=== PATIENT | male | born 1980 | race Caucasian/White ===

== ENCOUNTER 2016-10-26 09:59 | Observation (INO) | payer OTHER ==
--- NOTE | 2016-09-06 09:27 | DIAGNOSTIC IMAGING REPORT ---
CHEST 2 VIEWS ROUTINE CLINICAL HISTORY: PT WENT TO LAB SEND TO [facility] NEXT - PREOP COMPARISON STUDY: No previous studies for comparison. FINDINGS: The bones soft tissues and hemidiaphragms are normal. The cardiomediastinal silhouette is normal. The lungs are clear. The pulmonary vasculature is normal. IMPRESSION: Negative chest. Electronically signed by: Eddie Lopez M.D. 09/06/2016 9:26 AM
[2016-09-06 09:43] LABS: BASO % 0.4 %; BASO ABS # 0.02 K/uL (0-0.2); COMPLETE YES; EOS % 3.7 %; HEMATOCRIT 42.5 % (42-52); IG% 0.4 %; LYMPH % 22.9 %; LYMPH ABS # 1.23 K/uL (1.2-3.4); MEAN CORPUSCULAR HEMOGLOBIN 29.6 pg (25-34); MEAN CORPUSCULAR HGB CONC 35.3 g/dl (32-36); MEAN PLATELET VOLUME 9.8 fL (7.4-10.4); MONO % 10.2 %; NEUT % 62.4 %; PLATELET COUNT 170 K/uL (130-400); RED BLOOD COUNT 5.06 M/uL (4.7-6.1); WHITE BLOOD COUNT 5.37 K/uL (4.8-10.8)
[2016-09-06 10:18] LABS: BLOOD UREA NITROGEN 20 mg/dl (7-18); CARBON DIOXIDE 28 mmol/L (21-32); CHLORIDE 105 mmol/L (98-107); GLUCOSE 98 mg/dl (70-99); SODIUM 142 mmol/L (136-145)
[2016-09-08 11:59] LABS: URINE APPEARANCE CLEAR (CLEAR); URINE BILIRUBIN NEG (NEG); URINE COLOR YELLOW; URINE NITRITE NEG (NEG); URINE SPECIFIC GRAVITY 1.022 (1.000-1.030); UROBILINOGEN NEG (NEG)
[2016-09-08 12:04] LABS: MANUAL MICROSCOPIC REQUIRED? NO; REVIEW REQ? NO
[2016-10-25 16:01] VITALS: BMI 39.0
[2016-10-26] VITALS (13 sets, daily range): BP systolic 134–163; BP diastolic 79–99; PULSE 76–84; TEMP 36.5–36.9; O2SAT 93–96; Ht 182.9 cm; Wt 129.6 kg
[~2016-10-26] VITALS: Ht 182.9 cm; Wt 129.6 kg
[~2016-10-26 09:59] MED LIST: ADVIN25/60 INH; ALBU1AER9 INH; ALBU1NEB10 INH; CALC500C3 PO; DIPH25CA65 PO; IBUP-1050 PO; IPRASOL4 INH; LACTATED RINGER'S 1000ML 1,000 ML IV SCH; MOME100A INH
--- NOTE | 2016-10-26 12:15 | History and Physical ---
History & Physical Date Oct 26, 2016. Chief Complaint neck pain and R arm pain History of Present Illness The patient is a 36 year old male with complaints of above due to massive C6-7 HNP after work injury. MRI shows cord compression. He describes numbness and weakness of R UE. no incontinence. Past Medical/Surgical History Medical Problems: (1) Asthma, Unspecified (2) Carotid gland cancer (3) Cholecystectomy (4) Cholelith W Cholecys Nec (5) Esophageal Reflux (6) Hypertension Nos (7) Malignant neoplasm of parotid gland (8) Obesity, Nos (9) Parotid neoplasm (10) S/P radiation therapy (11) Sarcoidosis 12 Factor V Leiden-no hx of DVT or stroke Surgical Problems: (1) H/O wisdom tooth extraction (2) History of parotid gland removal Additional History Hepatic Disease: No Endocrine Disorder: No Kidney Disease: No Hypertension: No Heart Disease: No Bleeding Tendencies: No Infectious Diseases: No Allergies Coded Allergies: Cat Dander (Verified Allergy, Unknown, EYES SWELLING,STUFFINESS, 10/25/16) Dust (Verified Allergy, Unknown, STUFFINESS, ASTHMA TRIGGER?, 10/25/16) NO KNOWN DRUG ALLERGIES (Unverified Allergy, Unknown, NONE, 10/25/16) Home Medications Scheduled Calcium Carbonate (Tums), 2 TAB PO PRN Fluticasone Prop/Salmeterol (Advair Diskus 250/50 60 Dose), 1 PUFF INH BID Scheduled PRN Albuterol (Proair Hfa), 2 PUFFS INH Q4 PRN for SOB/Wheezing Albuterol Sulf (Albuterol Sulfate 0.083% For Inh), 3 ML INH QID PRN for PRN Diphenhydramine Hcl (Benadryl Allergy), 2 CAP PO Q4 PRN for ALLERGIC REACTION Ibuprofen (Advil), 400 MG PO BID PRN for PRN Ipratropium-Albuterol (Duoneb), 1 TREATMENT INH Q4H PRN for PRN Physical Examination Skin: warm/dry Eyes: normal inspection, sclerae normal ENT: normal ENT inspection Head: normocephalic, atraumatic Neck: supple Respiratory/Chest: lungs clear, no respiratory distress Cardiovascular: regular rate, rhythm Back: normal inspection Extremities: normal inspection, normal range of motion Neurologic/Psych: no motor/sensory deficits, alert, normal reflexes, oriented x 3 Addiitonal Comments: R fingers numbness Diagnosis HNP C6-7 Plan of Treatment disc replacement C6-7 versus possible C6-7 ACDF
[2016-10-26] MEDS ORDERED: OXYC-57 PO (12:17)
[2016-10-26] MEDS ORDERED: LACTATED RINGER'S 1000ML 1,000 ML IV PRN (12:18)
[2016-10-26] MEDS ORDERED: ONDANSETRON INJ 2 MG/ML 2 ML VIAL IV PRN ×2 (12:30→14:15)
[2016-10-26] MEDS ORDERED: REMIFENTANIL 1 MG VIAL IV ONE (12:32)
[2016-10-26] MEDS ORDERED: PROPOFOL IV EMULSION 10 MG/ML 100 ML VIAL IV ONE (12:32)
[2016-10-26] MEDS ORDERED: MIDAZOLAM HCL 1 MG/ML 2ML VIAL ONE (12:42)
[2016-10-26] MEDS ORDERED: FENTANYL CITRATE INJ 50 MCG/1 ML 2 ML VIAL ONE (12:42)
[2016-10-26] MEDS ORDERED: CEFAZOLIN IV 3,000 MG/65 ML D5W IV ONE (12:44)
[2016-10-26] MEDS ORDERED: ONDANSETRON INJ 2 MG/ML 2 ML VIAL ONE (13:30)
[2016-10-26] MEDS ORDERED: SUCCINYLCHOLINE CHLORIDE 20 MG/ML 10 ML VIAL IV ONE (13:30)
[2016-10-26] MEDS ORDERED: DEXAMETHASONE SOD INJ 4 MG/ML VIAL ONE (13:30)
[2016-10-26] MEDS ORDERED: EpHEDrine SULFATE 50MG/5ML SYR ONE (13:30)
[2016-10-26] MEDS ORDERED: LARYING-O-JET KIT (LTA) EXT ONE ×2 (13:30)
[2016-10-26] MEDS ORDERED: ROCURONIUM BROMIDE 10 MG/ML 5 ML VIAL ONE (13:30)
[2016-10-26] MEDS ORDERED: PROPOFOL IV EMULSION 10 MG/ML 20 ML VIAL IV ONE (13:30)
[2016-10-26] MEDS ORDERED: LIDOCAINE HCL 2% 2 ML VIAL (20MG/ML) ONE (13:30)
[2016-10-26] MEDS ORDERED: BACITRACIN 50000 UNIT VIAL IR ONE (14:04)
[2016-10-26] MEDS ORDERED: THROMBIN 5000 UNITS KIT TOP ONE (14:04)
[2016-10-26] MEDS ORDERED: FLOSEAL HEMOSTATIC MATRIX 5ML TOP ONE (14:04)
--- NOTE | 2016-10-26 14:07 | [facility] Post Operative Brief Note ---
Immediate Operative Summary Operative Date Oct 26, 2016. Pre-Operative Diagnosis Herniated nucleus pulposus C6-C7 Post-Operative Diagnosis Same as preoperative diagnosis Procedure(s) Performed C6-C7 Disc Replacement Surgeon Dr. Mikey Bernstein House Calls Nurse Practitioner Surgeon(s) Gerard Hong PA-C Estimated Blood Loss 20mL Findings dict Specimens No pathology specimens per surgeon
[2016-10-26] MEDS ORDERED: DEXAMETHASONE INJ 8 MG in SYRINGE 0 ML IV PRN (14:15)
[2016-10-26] MEDS ORDERED: ACETAMINOPHEN IV 1,000 MG in EMPTY BAG 0 ML IV PRN (14:15)
[2016-10-26] MEDS ORDERED: NALOXONE HCL 0.4 MG/1 ML VIAL/CARP IV PRN (14:15)
[2016-10-26] MEDS ORDERED: CALCIUM CARBONATE 500 MG CHEWABLE PO PRN (14:15)
[2016-10-26] MEDS ORDERED: DiphenhydrAMINE HCL 50 MG/ML VIAL IV PRN (14:15)
[2016-10-26] MEDS ORDERED: LORAZEPAM INJ 0.5 MG in SYRINGE 0.75 ML IV PRN (14:15)
[2016-10-26] MEDS ORDERED: LORAZEPAM 0.5 MG TAB PO PRN (14:15)
[2016-10-26] MEDS ORDERED: RACEPINEPHRINE 2.25% NEBU SOLN 0.5 ML VIAL INH PRN (14:15)
--- NOTE | 2016-10-26 14:20 | Discharge Instructions ---
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 Please continue this for a total of 7 days. ACTIVITY RECOMMENDATIONS: SELF CARE INSTRUCTIONS AFTER CERVICAL FUSIONS 1. No smoking. Smoking drastically decreases the chance of a solid fusion. 2. No bending, lifting more than 5 pounds, or twisting (roll like a log when turning in bed). 3. You may shower 3 days after surgery. Thoroughly dry wound. Do not soak in the tub. 4. Cervical collar: Must be worn at all times including sleeping. You may remove the brace only to bath, eat and if you are sitting in a recliner. 5. Please walk as much as you can for exercise. Gradually increase the distance that you walk as your endurance increases. SPECIAL CARE INSTRUCTIONS: VERY IMPORTANT TO READ AND REVIEW A. Do not take any anti-inflammatory medications (i.e. Indocin, Advil, Aspirin, Naprosyn, Aleve, Motrin, etc.) as these may inhibit the chance of a solid fusion. Tylenol is okay to take. B. Your surgical incision has been closed with a cosmetic suture under the skin that will dissolve in about 6 weeks. In 14 days, you can use a pair of clean scissors and cut the suture that is left outside of the skin at the ends of your incision. C. Complications are uncommon, but please contact us if you have any signs or symptoms of: 1. wound infection (fever higher than 102.5 degrees F, redness, separation of wound, drainage, or increasing pain from the incision) 2. blood clots in legs (pain, swelling, redness and warmth in legs) 3. urinary tract infection (fever higher than 102.5 degrees, burning upon urination or increased frequency of urination) 4. nerve problems (inability to walk on your toes or heels, numbness, loss of bowel or bladder control) 5. any other symptoms that concern you. D. Please call the office at if you have any concerns or questions about your operation or recovery. MANAGING PAIN AFTER SPINAL SURGERY 1. Narcotic medication is intended for short-term use and will be provided for surgical pain. Surgical pain usually lasts for a period of 4-6 weeks. Narcotic medication includes Percocet, Vicodin, Darvocet, Tylenol #3 or Lortab. 2. Longer-term pain is more appropriately treated with non-narcotic medication such as Tylenol ES. 3. Muscle spasm is not appropriately treated with narcotics. Muscle relaxers such as Soma, Flexeril or Skelaxin can be used along with Tylenol ES. 4. Remember that we all live with some "aches and pains". This is not unusual or uncommon after an injury or as we get older. 5. We will provide appropriate medication within the normal guidelines of their prescribed use. We will also be very cautious and aware of potential abuse and extended duration of patients' medication needs. 6. Please allow 2-3 days to process refills. Prescriptions will not be mailed but must be picked up at the office. FOLLOW UP VISIT: Keep your scheduled follow-up appointment. Any questions, please call the office at . . Current Hospital Diet Patient's current hospital diet: Clear Liquid Diet Discharge Diet Recommended Diet: Regular Diet Procedures Procedures Performed: C6-C7 Disc Replacement Pending Studies Studies pending at discharge: no Medical Emergencies . Who to Call and When: Medical Emergencies: If at any time you feel your situation is an emergency, please call 911 immediately. . Non-Emergent Contact Non-Emergency issues call your: Surgeon Call Non-Emergent contact if: temperature is above 101, your pain is not controlled, your pain is worsening, your pain is unusual for you, your pain is concerning you, wound has increased drainage, wound has increased redness, wound has increased pain, you have any medication questions . "Provider Documentation" section prepared by Gerard Hong. VTE Core Measure Inpt VTE Proph given/why not?: Gunner Lucero
[2016-10-26] MEDS ORDERED: IV FLUIDS COMPLETED PRN (14:30)
[2016-10-26] MEDS: FENTANYL CITRATE INJ 50 MCG/1 ML 2 ML VIAL IV PRN ×2 (14:32→14:38)
--- NOTE | 2016-10-26 14:32 | DIAGNOSTIC IMAGING REPORT ---
INTRAOPERATIVE RADIOGRAPHS CLINICAL HISTORY: C6-C7 spinal fusion. Fluoroscopy time: 19 seconds. FINDINGS: 3 spot fluoroscopic views of the cervical spine are presented. There is evidence of discectomy at C6-C7 with a disc spacer in place. An endotracheal tube is noted. IMPRESSION: Intraoperative images from C6 to C7 spinal fusion. See operative report for detailed findings. Electronically signed by: Ankit Olivo M.D. 10/26/2016 2:30 PM Dictated Date/Time: 10/26/2016 2:27 PM
[2016-10-26] MEDS: MoRPHine SULFATE 10 MG/ML CARP/VIAL IV PRN ×5 (14:47→15:24)
[2016-10-26] MEDS ORDERED: NURSING VERBAL MED ORDER ONE (15:00)
[2016-10-26] MEDS ORDERED: LABETALOL HCL IV 5 MG/ML 20ML IV PRN (15:15)
--- NOTE | 2016-10-26 15:21 | OPERATIVE REPORT ---
DATE OF OPERATION: 10/26/2016 PREOPERATIVE DIAGNOSES: 1. Cervical disc herniation C6-C7. 2. Cervical myelopathy. POSTOPERATIVE DIAGNOSIS: Same. PROCEDURES: Cervical disc replacement with LDR Mobi-C C6-C7. SURGEON: Dr. Bernstein. [employer] BUSINESS INTELLIGENCE DEVELOPER: Gerard Hong PA-C. Please note he participated in all portions of the procedure and was critical for performance of the procedure, participated with positioning, prepping, draping, retraction, and wound closure. ANESTHESIA: General endotracheal anesthesia. COMPLICATIONS: None. ESTIMATED BLOOD LOSS: Minimal. OPERATION AND FINDINGS: PROCEDURE: After identification of patient and operative level he underwent induction of general anesthesia. He was then positioned supine on the [facility] OR table with all bony prominences well padded. Care was taken to avoid pressure on the bony prominences. He had arms tucked to the sides and well padded. Shoulders were taped distally and the anterior neck was sterilely prepped and draped in usual fashion. Antibiotics were administered. Time-out was performed, level was confirmed and spinal cord monitoring signals were obtained and transverse skin incision was made on the right side of the neck at the level of the cricoid cartilage. I divided the platysma in line with the incision and performed routine anterior cervical exposure. Please note I did all of this from the left side in his case. We did not approach from the right. The initial skin incision was made on the left and exposure was done from the left with blunt dissection. I then dissected past the carotid sheath and identified the presumptive disc spaces. After exposure of the disc spaces I identified level with fluoroscopy and marked the C6-C7 disc space with electrocautery and then placed self-retaining cervical retractor deep to the longus colli. I then placed Clinton pins in the body of C6 and C7 and applied distraction across the pins and then did a complete discectomy at C6-C7. I removed the posterior annulus, the PLL and there was extruded disc material behind the annulus contained by the PLL. There was no disc material behind the PLL. I then palpated the neural foramina were clear and determined disc replacement size with trial sizers. I then inserted the 6 mm high Mobi-C into position, released Clinton distraction, applied bone wax over the holes. I obtained x-rays confirming good position of the disc replacement and then irrigated with bacitracin solution, applied FloSeal for hemostasis, confirmed hemostasis and closed over a small round drain. All sponge and needle counts were correct at the end of the case. I attest to the content of the Intraoperative Record and any orders documented therein. Any exceptio ns are noted below.
--- NOTE | 2016-10-26 15:35 | Anesthesiology Progress Note ---
Anesthesia Post Op Note Date & Time Oct 26, 2016 at 15:34 Vital Signs Pain Intensity: 5 Vital Signs Past 12 Hours Date Time Temp Pulse Resp B/P Pulse Ox O2 Delivery O2 Flow Rate FiO2 10/26/16 15:26 82 16 126/95 95 Nasal Cannula 2 Mask 10/26/16 15:16 76 16 126/95 96 Nasal Cannula 2 Mask 10/26/16 15:06 73 16 126/93 96 Nasal Cannula 2 Mask 10/26/16 14:56 84 16 134/90 99 Nasal Cannula 2 Mask 10/26/16 14:46 83 16 134/102 99 Mask 10 10/26/16 14:36 77 14 156/107 99 Mask 10 10/26/16 14:26 36.4 81 16 165/94 98 Mask 10 10/26/16 10:28 36.5 81 20 134/94 95 Room Air 10/26/16 10:26 36.5 81 20 134/94 Notes Mental Status: alert / awake / arousable, participated in evaluation Pt Amnestic to Procedure: Yes Nausea / Vomiting: adequately controlled Pain: adequately controlled Airway Patency, RR, SpO2: stable & adequate BP & HR: stable & adequate Hydration State: stable & adequate Anesthetic Complications: no major complications apparent Pt doing well.
[2016-10-26] MEDS: SODIUM CHLORIDE 0.9% 1000ML 1,000 ML IV SCH (16:40)
[2016-10-26] MEDS ORDERED: SCOPOLAMINE 1.5 MG TDSY TD SCH (17:00)
[2016-10-26] MEDS: ALBUTEROL HFA 8 GM INHALER INH PRN (19:17)
[2016-10-26] MEDS: OXYCODONE HCL IR 5 MG TAB (IMMEDIATE RELEASE) PO PRN (19:18)
[2016-10-26] MEDS: FLUTICASONE/SALMETEROL 250/50 (ADVAIR) 14 PUFF/1 INHALER INH SCH (20:41)
[2016-10-26] MEDS: CEFAZOLIN IV 1,000 MG in DEXTROSE 5% 50ML 50 ML IV SCH (20:41)
[2016-10-26] MEDS: HYDROmorphone INJ 1 MG/ML SYR IV PRN ×2 (20:42→23:34)
[2016-10-26] MEDS: DEXAMETHASONE INJ 6 MG in SYRINGE 0 ML IV SCH (21:48)
[2016-10-26] MEDS: CHECK SCOPOLAMINE PATCH PLACEMENT SCH (23:34)
[2016-10-27] VITALS (11 sets, daily range): BP systolic 118–148; BP diastolic 68–81; PULSE 68–86; TEMP 36.6–36.9; O2SAT 93–98
[2016-10-27] MEDS: DEXAMETHASONE INJ 6 MG in SYRINGE 0 ML IV SCH (05:32)
[2016-10-27] MEDS: SODIUM CHLORIDE 0.9% 1000ML 1,000 ML IV SCH (05:32)
[2016-10-27] MEDS: OXYCODONE HCL IR 5 MG TAB (IMMEDIATE RELEASE) PO PRN (05:33)
[2016-10-27] MEDS: CEFAZOLIN IV 1,000 MG in DEXTROSE 5% 50ML 50 ML IV SCH (05:33)
[2016-10-27] MEDS: CHECK SCOPOLAMINE PATCH PLACEMENT SCH (07:59)
[2016-10-27] MEDS: FLUTICASONE/SALMETEROL 250/50 (ADVAIR) 14 PUFF/1 INHALER INH SCH (07:59)
[2016-10-27] MEDS: ALBUTEROL HFA 8 GM INHALER INH PRN (08:00)
--- NOTE | 2016-10-27 10:02 | Orthopedic Progress Note ---
Orthopedic Progress Note Date of Service Oct 27, 2016. Subjective Post OP Day: 1 Reports: feeling well, pain controlled w PO medications, Denies: SOB, calf pain , chest pain, complaints, light headedness, nausea / vomiting Additional Notes: Doing well w/ no issues Objective calves soft nontender, N/V intact, capillary refill less than 2 sec., dressing C /D/I, incision C/D/I, A&O x3, hemovac drainage Date Time Temp Pulse Resp B/P Pulse Ox O2 Delivery O2 Flow Rate FiO2 10/27/16 08:16 36.6 68 16 94 Room Air 10/27/16 08:16 84 16 98 Room Air 10/27/16 08:00 Room Air 10/27/16 08:00 94 Room Air 10/27/16 07:57 36.6 68 16 125/72 94 Room Air 10/27/16 05:54 36.6 71 16 118/68 93 Room Air 10/27/16 04:10 81 16 96 Nasal Cannula 3.0 10/27/16 04:00 36.7 77 16 138/77 95 Nasal Cannula 3.0 Humidified Oxygen 10/27/16 02:05 36.9 78 16 125/72 97 Nasal Cannula 3.0 Humidified Oxygen 10/27/16 00:35 80 16 96 Nasal Cannula 2.0 10/27/16 00:00 36.8 81 16 148/81 96 Nasal Cannula 3.0 Humidified Oxygen 10/26/16 23:35 Nasal Cannula 3.0 Humidified Oxygen 10/26/16 23:00 16 10/26/16 22:00 36.8 81 18 144/79 95 Nasal Cannula 3.0 Humidified Oxygen 10/26/16 20:20 84 18 95 Nasal Cannula 2.0 10/26/16 20:00 36.9 78 18 152/89 96 Nasal Cannula 2.0 Humidified Oxygen 10/26/16 19:05 36.7 76 18 146/82 95 Nasal Cannula 2.0 Humidified Oxygen 10/26/16 19:05 36.7 76 18 146/82 95 Nasal Cannula 2.0 Humidified Oxygen 10/26/16 18:05 36.8 83 18 142/91 93 Nasal Cannula 2.0 Humidified Oxygen 10/26/16 18:05 36.8 83 18 142/91 93 Nasal Cannula 2.0 Humidified Oxygen 10/26/16 17:07 36.8 80 18 147/93 95 Nasal Cannula 2.0 Humidified Oxygen 10/26/16 17:05 36.8 76 18 147/93 95 Nasal Cannula 2.0 Humidified Oxygen 10/26/16 16:36 36.6 79 18 154/99 94 Nasal Cannula 2.0 Humidified Oxygen 10/26/16 16:35 36.6 76 18 154/99 94 Nasal Cannula 2.0 Humidified Oxygen 10/26/16 16:05 96 Nasal Cannula 2.0 10/26/16 16:05 36.8 76 16 163/93 96 Nasal Cannula 2.0 Humidified Oxygen 10/26/16 16:05 Nasal Cannula 2.0 Humidified Oxygen 10/26/16 15:56 81 14 95 Nasal Cannula 2.0 10/26/16 15:36 36.2 84 16 128/95 95 Nasal Cannula 4 10/26/16 15:26 82 16 126/95 95 Nasal Cannula 2 Mask 10/26/16 15:16 76 16 126/95 96 Nasal Cannula 2 Mask 10/26/16 15:06 73 16 126/93 96 Nasal Cannula 2 Mask 10/26/16 14:56 84 16 134/90 99 Nasal Cannula 2 Mask 10/26/16 14:46 83 16 134/102 99 Mask 10 10/26/16 14:36 77 14 156/107 99 Mask 10 10/26/16 14:26 36.4 81 16 165/94 98 Mask 10 10/26/16 10:28 36.5 81 20 134/94 95 Room Air 10/26/16 10:26 36.5 81 20 134/94 Assessment & Plan Assessment: s/p cervical fusion Plan: Discharge home today
--- NOTE | 2016-10-27 10:21 | Anesthesiology Progress Note ---
Anesthesia Post Op Note Date & Time Oct 27, 2016 at 10:20 Vital Signs Pain Intensity: 1.0 Vital Signs Past 12 Hours Date Time Temp Pulse Resp B/P Pulse Ox O2 Delivery O2 Flow Rate FiO2 10/27/16 08:16 36.6 68 16 94 Room Air 10/27/16 08:16 84 16 98 Room Air 10/27/16 08:00 Room Air 10/27/16 08:00 94 Room Air 10/27/16 07:57 36.6 68 16 125/72 94 Room Air 10/27/16 05:54 36.6 71 16 118/68 93 Room Air 10/27/16 04:10 81 16 96 Nasal Cannula 3.0 10/27/16 04:00 36.7 77 16 138/77 95 Nasal Cannula 3.0 Humidified Oxygen 10/27/16 02:05 36.9 78 16 125/72 97 Nasal Cannula 3.0 Humidified Oxygen 10/27/16 00:35 80 16 96 Nasal Cannula 2.0 10/27/16 00:00 36.8 81 16 148/81 96 Nasal Cannula 3.0 Humidified Oxygen 10/26/16 23:35 Nasal Cannula 3.0 Humidified Oxygen 10/26/16 23:00 16 Notes Mental Status: alert / awake / arousable, participated in evaluation Pt Amnestic to Procedure: Yes Nausea / Vomiting: adequately controlled Pain: adequately controlled Airway Patency, RR, SpO2: stable & adequate BP & HR: stable & adequate Hydration State: stable & adequate Anesthetic Complications: no major complications apparent
--- NOTE | 2016-11-04 12:06 | DISCHARGE SUMMARY ---
PRINCIPAL DIAGNOSIS: 1. Cervical spinal stenosis C6-C7. 2. Cervical myelopathy. POSTOPERATIVE DIAGNOSIS: Same. PROCEDURE: Cervical disc replacement, C6-C7. SURGEON: Dr. Mikey Bernstein. BROACH OPERATOR: Gerard Hong PA-C. HISTORY OF PRESENT ILLNESS: Please refer to EMR. HOSPITAL COURSE: On 10/26/2016 Mr. Schwartz was admitted to [facility] with the above diagnosis. He was taken to preoperative holding where he was identified, evaluated and cleared for surgical procedure. He was transported to the operating room, introduced with general endotracheal anesthesia, sterile conditions were set and he successfully underwent C6-C7 cervical disc replacement without complication or issue. He was awakened in stable and satisfactory condition, taken to postoperative recovery. Here his vital signs and pain were monitored and managed where he remained medically stable. He was taken to the orthopedic floor. Throughout the night his pain was well managed. Vital signs remain stable. No difficulty swallowing or difficulty breathing, his night was restful. He was evaluated in the morning of 10/27/2016 and indicated for return home. On this date he was discharged from [facility]. DISPOSITION: Home. DISPOSITION CONDITION: Stable. NOTED COMPLICATIONS OR ISSUES: Zero. DISCHARGE INSTRUCTIONS: Please refer to EMR.
== END 2016-10-27 11:35 | disposition home or self-care (01) ==
LOC: ENRESERVDT → ENRESERVTM → C.ACU 09:59 → C.3E 14:10
PROVIDERS: ADMIT Orthopaedic Surgery Orthopaedic Surgery of the Spine; ATTEND Orthopaedic Surgery Orthopaedic Surgery of the Spine
DX: M50.023 Cervical disc disorder at C6-C7 level with myelopathy (principal); J45.909 Unspecified asthma, uncomplicated; K21.9 Gastro-esophageal reflux disease without esophagitis; M50.223 Other cervical disc displacement at C6-C7 level; D68.51 Activated protein C resistance; E66.9 Obesity, unspecified; I10 Essential (primary) hypertension; Z90.49 Acquired absence of other specified parts of digestive tract

== ENCOUNTER 2017-07-27 12:39 | Emergency (ER) | payer OTHER ==
[~2017-07-27] VITALS: Ht 182.9 cm; Wt 126.1 kg
[~2017-07-27 12:39] MED LIST changes: -LACTATED RINGER'S 1000ML 1,000 ML IV SCH; -MOME100A INH
[2017-07-27 12:47] VITALS: TEMP 36.8; Ht 182.9 cm; Wt 126.1 kg
[2017-07-27] MEDS ORDERED: VLT/75 PO (12:59)
[2017-07-27] MEDS ORDERED: ETOD400T PO (12:59)
[2017-07-27] MEDS ORDERED: ALBU18002 INH (12:59)
[2017-07-27] MEDS ORDERED: HYDROCODONE/ACETAMOPHEN 5/325MG TAB PO STA (13:31)
--- NOTE | 2017-07-27 14:37 | DIAGNOSTIC IMAGING REPORT ---
RIGHT SHOULDER 3 VIEWS CLINICAL HISTORY: Right neck and arm pain. FINDINGS: 3 views of the right shoulder are obtained. No prior studies are available for comparison at the time of dictation. The skeletal structures are well mineralized. No fracture or dislocation is seen. The glenohumeral and acromioclavicular joints are preserved. The overlying soft tissues are within normal limits. Visualized right upper lobe lung parenchyma appears clear. Postoperative change is seen in the lower cervical spine. IMPRESSION: Unremarkable radiographic assessment of the right shoulder. Electronically signed by: Ankit Olivo M.D. 07/27/2017 2:36 PM Dictated Date/Time: 07/27/2017 2:35 PM
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
--- NOTE | 2017-07-27 16:43 | DIAGNOSTIC IMAGING REPORT ---
MRI OF THE CERVICAL SPINE WITHOUT CONTRAST CLINICAL HISTORY: Neck pain and right arm numbness. Previous trauma. COMPARISON: CT of the neck April 16, 2013. TECHNIQUE: Utilizing a 1.5 Theresa magnet and dedicated coil, multiplanar, multiecho imaging of the cervical spine was performed without IV contrast. FINDINGS: There are findings consistent with a C6-C7 discectomy with interbody spacer placement. Evaluation at this level is compromised by related susceptibility artifact. No intracanalicular mass or fluid collection is present. There is no marrow edema or marrow replacement. Visualized portions of the posterior fossa are unremarkable. Cervical cord signal level at the operative level is suboptimally assessed but no definite cord signal abnormality is present. C2-C3: The central canal and neural foramen are patent. C3-C4: The central canal and neural foramen are patent. C4-C5: The central canal is patent. The right neural foramen is patent. There is moderate narrowing of the left neural foramen due to uncovertebral hypertrophy and facet arthrosis. C5-C6: There is minimal right paracentral disc osteophyte complex results in minimal narrowing of the central canal. There is severe right and moderate left neural foraminal stenosis. C6-C7: There is mild central canal stenosis which is difficult to assess due to artifact. The left neural foramen is patent. There is severe narrowing of the right neural foramen. C7-T1: The central canal and neural foramen are patent. IMPRESSION: 1. Status post C6-C7 anterior discectomy. Suboptimal evaluation of the cervical spine at this level due to susceptibility artifact. 2. No acute abnormality within the cervical spine by MRI. 3. Mild central canal stenosis at C5-C6 and C6-C7. 4. Severe right neural foraminal stenosis at C5-C6 and C6-C7. Electronically signed by: Demian Alvarado M.D. 07/27/2017 4:42 PM Dictated Date/Time: 07/27/2017 4:34 PM
[2017-07-27] MEDS ORDERED: DEXAMETHASONE SOD INJ 10 MG/ML VIAL IM STA (17:56)
[2017-07-27] MEDS ORDERED: HYDR-5688 PO (18:15)
[2017-07-27] MEDS ORDERED: METH4PAK PO (18:15)
[2017-07-27 18:29] VITALS: BP 152/101; PULSE 80; O2SAT 95
== END 2017-07-27 18:07 | disposition home or self-care (01) ==
LOC: C.EDB 12:40 → C.EDD 18:07
DX: M54.5 Low back pain (principal); M25.511 Pain in right shoulder; J45.909 Unspecified asthma, uncomplicated; Z85.89 Personal history of malignant neoplasm of other organs and systems; M50.30 Other cervical disc degeneration, unspecified cervical region; K21.9 Gastro-esophageal reflux disease without esophagitis; I10 Essential (primary) hypertension; E66.9 Obesity, unspecified; D86.9 Sarcoidosis, unspecified; Z82.49 Family history of ischemic heart disease and other diseases of the circulatory system; Z79.899 Other long term (current) drug therapy

== ENCOUNTER 2017-08-12 06:48 | Day surgery (SDC) | payer OTHER ==
[2017-08-12] VITALS (10 sets, daily range): BP systolic 110–148; BP diastolic 79–93; PULSE 65–84; TEMP 36.4–36.6; O2SAT 95–98; Ht 182.9 cm; Wt 127.1 kg
[~2017-08-12] VITALS: Ht 182.9 cm; Wt 127.1 kg
[~2017-08-12 06:48] MED LIST changes: -ADVIN25/60 INH; -ALBU1AER9 INH; -ALBU1NEB10 INH; +HYDR-5688 PO; -IBUP-1050 PO
--- NOTE | 2017-08-12 08:57 | Discharge Instructions ---
Discharge Instructions Procedure Procedure Date: Aug 12, 2017. Reason for visit: Cervical Radiculopathy. Discharge Discharge Date: Aug 12, 2017. Discharge Diagnosis: Same Instructions Activity Recommendations: No limitations Return to School/Work: no limitations Recommended Home Diet: Resume Previous Diet Provider Instructions: ACTIVITY RECOMMENDATIONS: * Rest today. * Resume regular activity in one day. MEDICATIONS: * May take Tylenol or Ibuprofen as needed for pain. DIET: * Resume previous diet. SPECIAL CARE INSTRUCTIONS: Call your doctor if: * Temperature above 101 degrees F. * Pain not relieved by pain medicine ordered. * Increased drainage or redness from incision. * Notify your doctor with any questions or concerns. Call your doctor or go to the nearest Emergency Department if you experience: * Increased chest pain or shortness of breath. FOLLOW UP VISIT: Follow-up with Referring Physician as scheduled. Allergies Coded Allergies: Cat Dander (Verified Allergy, Unknown, EYES SWELLING,STUFFINESS, 08/12/17) Dust (Verified Allergy, Unknown, STUFFINESS, ASTHMA TRIGGER?, 08/12/17) NO KNOWN DRUG ALLERGIES (Unverified Allergy, Unknown, NONE, 08/12/17) Francisco Hagen Recommendations: Call your doctor if: * Temperature above 101 degrees * Pain not relieved by pain medicine ordered * There is increased drainage or redness from any incision * You have any unanswered questions or concerns. Your Doctors Instructions noted above were prepared by provider Osvaldo Simon. Patient Signature Section: Patient Instructions Signature Page Rahat Schwartz Patient (or Guardian) Signature/Date: I have read and understand the instructions given to me by my caregivers. Caregiver/RN/Doctor Signature/Date: The above-named patient and/or guardian has received patient instructions on this date. + Original Patient Signature Page (only) stays with chart. Please make copy for patient.
--- NOTE | 2017-08-12 09:36 | DIAGNOSTIC IMAGING REPORT ---
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 Chronic neck pain with radicular symptoms PROCEDURE: The risks, benefits, and alternatives to the procedure is discussed with the patient who voiced understanding. Written informed consent was obtained. The patient was placed prone on the fluoroscopy table. The lower back was prepped and draped in the usual sterile fashion. 1% lidocaine was used for local anesthesia. A 20-gauge spinal needle was inserted into the L3-L4 interlaminar space, and upon return of clear colorless cerebrospinal fluid, approximately 10 mL of Isovue-300 iodinated contrast was injected into the lumbar thecal space. The table was then angled a few degrees with the patient's head towards the floor and multiple fluoroscopic images were obtained as contrast traversed through the thoracic and into the cervical thecal space and also inadvertently refluxed into the ventricular system. The patient then experienced some nausea and emesis. Otherwise, the patient tolerated the procedure well. There were no immediate complications. The patient was then transported to the CT scanner and then the medical treatment unit for further observation. FLUOROSCOPY TIME: 0.8 minutes IMPRESSION: Successful lumbar puncture and cervical myelogram. The above report was generated using voice recognition software. It may contain grammatical, syntax or spelling errors. Electronically signed by: Luis Simon M.D. 08/12/2017 9:34 AM Dictated Date/Time: 08/12/2017 9:29 AM
[2017-08-12] MEDS ORDERED: ACETAMINOPHEN 500 MG TAB PO PRN (10:30)
[2017-08-12] MEDS ORDERED: IBUPROFEN 200 MG TAB ONE (12:06)
[2017-08-12] MEDS ORDERED: NURSING VERBAL MED ORDER ONE (12:15)
--- NOTE | 2017-08-12 13:18 | DIAGNOSTIC IMAGING REPORT ---
CERVICAL SPINE WITH HISTORY: 37 years-old Male CERVICAL RADICULOPATHY cervical radicular symptoms with prior discectomy COMPARISON: Cervical spine MRI 07/27/2017 TECHNIQUE: Multiple axial CT images of the cervical spine were obtained following the intrathecal administration of 10 mL Isovue-300 iodinated contrast. Coronal and sagittal reformatted images were obtained from the axial data set and submitted for review. A dose lowering technique was used consistent with the principals of DANNY. FINDINGS: There is straightening of the normal cervical lordosis. Postoperative changes of prior discectomy at C6-C7 with prosthetic endplates noted at this level. Mild multilevel endplate spurring is noted. Mild facet arthropathy of the mid cervical spine as above. Nuchal ligament calcifications are seen measuring up to 1.2 cm no acute fracture or subluxation. Imaged soft tissues are unremarkable with the exception of a subdermal cystic structure measuring 1.6 x 1.5 cm within the left paramedian posterior tissues at the level of C3 suggesting sebaceous cyst. The lung apices are clear. Mildly heterogeneous appearance of the thyroid without focal nodule. Imaged posterior fossa structures are unremarkable. There is reflux of contrast into the cisterns and ventricles. C2-C3: Mild uncovertebral spurring. No central canal or foraminal narrowing. C3-C4: Mild uncovertebral spurring without central canal or foraminal narrowing. C4-C5: Mild uncovertebral spurring with broad-based posterior disc bulge. No central canal or foraminal narrowing. Mild facet arthrosis. C5-C6: Mild intervertebral disc space narrowing with marginal endplate spurring and small posterior broad-based disc bulge flattens the ventral thecal sac causing mild central canal stenosis. There is severe right foraminal stenosis. Left foramen is moderately narrowed. C6-C7: Prior discectomy changes. Streak artifact from metallic hardware mildly limits evaluation of this level. Posterior osteophytic spurring and mild facet arthrosis noted at with mild central canal and severe right foraminal narrowing. Left foramen is patent. C7-T1: Mild facet arthrosis. No central canal or foraminal narrowing. IMPRESSION: 1. Post surgical changes at C6-C7 with prior discectomy. Streak artifact from metallic hardware mildly limits evaluation of this level. At this interspace, there is posterior osteophytic spurring and mild facet arthrosis causing mild central canal, and severe right foraminal narrowing. 2. At C5-C6, discogenic degenerative changes cause mild central canal and severe right foraminal narrowing. 3. Straightening of the normal cervical lordosis. The above report was generated using voice recognition software. It may contain grammatical, syntax or spelling errors. Electronically signed by: Luis Simon M.D. 08/12/2017 1:16 PM Dictated Date/Time: 08/12/2017 9:03 AM
== END 2017-08-12 13:20 | disposition home or self-care (01) ==
LOC: C.ACU 06:48
PROVIDERS: ATTEND Orthopaedic Surgery Orthopaedic Surgery of the Spine
DX: M54.12 Radiculopathy, cervical region (principal)

== ENCOUNTER 2017-10-05 23:46 | Emergency (ER) | payer OTHER ==
[~2017-10-05] VITALS: Ht 182.9 cm; Wt 128.5 kg
[2017-10-05 23:55] VITALS: TEMP 36.6; Ht 182.9 cm; Wt 128.5 kg
[2017-10-06] MEDS ORDERED: TROLAMINE SALICYLATE 10% CRM 255 APPLN/85 GM TUBE EXT STA (00:15)
[2017-10-06] MEDS ORDERED: KETOROLAC TROMETHAMINE 30 MG/ML VIAL IV STA (00:15)
[2017-10-06 01:25] LABS: BASO % 0.4 %; BASO ABS # 0.02 K/uL (0-0.2); COMPLETE YES; EOS % 4.5 %; HEMATOCRIT 39.9 % (42-52); IG% 0.2 %; LYMPH % 26.2 %; LYMPH ABS # 1.34 K/uL (1.2-3.4); MEAN CELL VOLUME 84.4 fL (80-100); MEAN CORPUSCULAR HGB CONC 34.3 g/dl (32-36); MEAN PLATELET VOLUME 9.8 fL (7.4-10.4); MONO % 10.2 %; NEUT % 58.5 %; PLATELET COUNT 130 K/uL (130-400); RED BLOOD COUNT 4.73 M/uL (4.7-6.1); WHITE BLOOD COUNT 5.11 K/uL (4.8-10.8)
[2017-10-06 01:27] LABS: ALKALINE PHOSPHATASE 67 U/L (45-117); ALT/SGPT 41 U/L (12-78); AST/SGOT 20 U/L (15-37); BLOOD UREA NITROGEN 21 mg/dl (7-18); BUN/CREATININE RATIO 19.5 (10-20); CALCIUM 8.4 mg/dl (8.5-10.1); CARBON DIOXIDE 25 mmol/L (21-32); CHLORIDE 109 mmol/L (98-107); CREATININE 1.09 mg/dl (0.60-1.40); GLUCOSE 157 mg/dl (70-99); POTASSIUM 3.8 mmol/L (3.5-5.1); SODIUM 139 mmol/L (136-145)
[2017-10-06 01:55] VITALS: BP 162/107; PULSE 84; O2SAT 95
--- NOTE | 2017-10-06 02:09 | EMERGENCY ROOM VISIT NOTE ---
History First contact with patient: 00:08 Chief Complaint: RIB PAIN Stated Complaint: PAIN IS SIDE OF ABD History of Present Illness The patient is a 37 year old male who presents to the Emergency Room with complaints of left lateral chest wall pain and left upper quadrant pain for the past few hours after sneezing and feeling a pop. Pain is worse with movement and breathing. No direct injury to the area. Patient did not fall. Pain currently 8 out of 10. It does not radiate. He describes it as aching. Patient denies fevers, cough, congestion, vomiting, diarrhea, back pain. No prior heart disease. Review of Systems See HPI for pertinent positives & negatives. A total of 10 systems reviewed and were otherwise negative. Past Medical/Surgical History Medical Problems: (1) Asthma, Unspecified (2) Carotid gland cancer (3) Cholecystectomy (4) Cholelith W Cholecys Nec (5) DDD (degenerative disc disease), cervical (6) Esophageal Reflux (7) Hypertension Nos (8) Malignant neoplasm of parotid gland (9) Obesity, Nos (10) Parotid neoplasm (11) S/P radiation therapy (12) Sarcoidosis Surgical Problems: (1) H/O wisdom tooth extraction (2) History of parotid gland removal Family History Heart disease Social History Smoking Status: Never Smoker Drug Use: none Marital Status: Housing Status: lives with family Occupation Status: employed Current/Historical Medications Scheduled Calcium Carbonate (Tums), 2 TAB PO PRN Scheduled PRN Diphenhydramine Hcl (Benadryl Allergy), 2 CAP PO Q4 PRN for ALLERGIC REACTION Hydrocodone/Acetaminophen 5MG/325MG ([place] 5MG/325MG), 1-2 TABLET PO Q6 PRN for Pain Ipratropium-Albuterol (Duoneb), 1 TREATMENT INH Q4H PRN for PRN Physical Exam Vital Signs Date Time Temp Pulse Resp B/P (MAP) Pulse Ox O2 Delivery O2 Flow Rate FiO2 10/06/17 01:55 84 17 162/107 95 Room Air 10/05/17 23:55 36.6 86 24 156/108 96 Room Air Physical Exam VITALS: Vitals are noted on the nurse's note and reviewed by myself. Vital signs stable. GENERAL: White male, in no acute distress, nondiaphoretic, well-developed well- nourished. SKIN: The skin was without rashes, erythema, edema, or bruising. There is no tenting of the skin. Capillary reflex less than 2 seconds. HEAD: Normocephalic atraumatic. EARS: External auditory canals clear, tympanic membranes pearly amezquita without erythema or effusion bilaterally. EYES: Pupils equal round and reactive to light and accommodation. Conjunctivae without injection, sclerae without icterus. NOSE: Patent, turbinates without inflammation or discharge. MOUTH: Mucous membranes moist. Pharynx without erythema or exudate. Uvula midline. Airway patent. Tongue does not deviate. NECK: Supple without nuchal rigidity. No lymphadenopathy. No thyromegaly. Cervical spine is nontender. No JVD. HEART: Regular rate and rhythm without murmurs gallops or rubs. Left lateral chest wall tender to palpation easily reproducing symptoms over rib 7 and 8. No rashes LUNGS: Clear to auscultation bilaterally without wheezes, rales or rhonchi. No dullness to percussion. No retractions or accessory muscle use. ABDOMEN: Positive bowel sounds x 4. Normal tympanic percussion. Soft, nontender, without masses or organomegaly. Barr sign negative. No guarding or rebound tenderness. No CVA tenderness MUSCULOSKELETAL: No muscle atrophy, erythema, or edema noted. NEURO: Patient was alert and oriented to person place and time. Normal sensation to light and sharp touch. No focal neurological deficits. Medical Decision & Procedures Laboratory Results 10/06/17 00:44 Red Blood Count 4.73, Mean Corpuscular Volume 84.4, Mean Corpuscular Hemoglobin 29.0, Mean Corpuscular Hemoglobin Concent 34.3, Mean Platelet Volume 9.8, Neutrophils (%) (Auto) 58.5, Lymphocytes (%) (Auto) 26.2, Monocytes (%) (Auto) 10.2, Eosinophils (%) (Auto) 4.5, Basophils (%) (Auto) 0.4, Neutrophils # (Auto ) 2.99, Lymphocytes # (Auto) 1.34, Monocytes # (Auto) 0.52, Eosinophils # (Auto ) 0.23, Basophils # (Auto) 0.02 10/06/17 00:44 Test 10/06/17 00:44 White Blood Count 5.11 K/uL (4.8-10.8) Red Blood Count 4.73 M/uL (4.7-6.1) Hemoglobin 13.7 g/dL (14.0-18.0) Hematocrit 39.9 % (42-52) Mean Corpuscular Volume 84.4 fL (80-100) Mean Corpuscular Hemoglobin 29.0 pg (25-34) Mean Corpuscular Hemoglobin Concent 34.3 g/dl (32-36) Platelet Count 130 K/uL (130-400) Mean Platelet Volume 9.8 fL (7.4-10.4) Neutrophils (%) (Auto) 58.5 % Lymphocytes (%) (Auto) 26.2 % Monocytes (%) (Auto) 10.2 % Eosinophils (%) (Auto) 4.5 % Basophils (%) (Auto) 0.4 % Neutrophils # (Auto) 2.99 K/uL (1.4-6.5) Lymphocytes # (Auto) 1.34 K/uL (1.2-3.4) Monocytes # (Auto) 0.52 K/uL (0.11-0.59) Eosinophils # (Auto) 0.23 K/uL (0-0.5) Basophils # (Auto) 0.02 K/uL (0-0.2) RDW Standard Deviation 39.3 fL (36.4-46.3) RDW Coefficient of Variation 13.1 % (11.5-14.5) Immature Granulocyte % (Auto) 0.2 % Immature Granulocyte # (Auto) 0.01 K/uL (0.00-0.02) Anion Gap 5.0 mmol/L (3-11) Est Creatinine Clear Calc Drug Dose 127.3 ml/min Estimated GFR () 99.3 Estimated GFR (Non- 85.6 BUN/Creatinine Ratio 19.5 (10-20) Calcium Level 8.4 mg/dl (8.5-10.1) Total Bilirubin 0.3 mg/dl (0.2-1) Direct Bilirubin mg/dl (0-0.2) Aspartate Amino Transf (AST/SGOT) 20 U/L (15-37) Alanine Aminotransferase (ALT/SGPT) 41 U/L (12-78) Alkaline Phosphatase 67 U/L (45-117) Troponin I < 0.015 ng/ml (0-0.045) Total Protein 6.5 gm/dl (6.4-8.2) Albumin 3.4 gm/dl (3.4-5.0) Lipase 203 U/L (73-393) Chemistry Specimen Hemolysis Medications Administered Medications (Trade) Dose Ordered Sig/Janeen Route Start Time Stop Time Status Last Admin Dose Admin Ketorolac Tromethamine (Toradol Inj) 30 mg NOW STAT IV 10/06/17 00:15 10/06/17 00:17 DC 10/06/17 00:52 30 MG Trolamine Salicylate (Myoflex Cream) 1 appln NOW STAT EXT 10/06/17 00:15 10/06/17 00:17 DC 10/06/17 00:51 1 APPLN Oxycodone HCl (Roxicodone Immediate Rel 5MG Home Pack) 1 homepack UD ONCE PO 10/06/17 02:15 10/06/17 02:16 DC 10/06/17 02:13 1 HOMEPACK ED Course Prior records/ancillary studies reviewed. Triage Nursing notes reviewed. Additional history obtained from family The patient's history was concerning for chest pain. Differential diagnosis: Etiologies such as cardiac ischemia, aortic dissection, pulmonary embolism, pneumonia, pneumothorax, musculoskeletal, infections, pericarditis, myocarditis , esophageal rupture, gastrointestinal, as well as others were entertained. Physical examination: As above. ER treatment provided: Toradol, incentive spirometry On reassessment the patient felt better. Diagnostic interpretation by me: The electrocardiogram was negative for pathologic change. Normal sinus, normal intervals, no acute ST-T wave changes, rate of 73. Impression normal sinus rhythm interpreted by myself The labs revealed negative negative troponin. Mild hyperglycemia Imaging studies: Chest x-ray with no acute consolidation, pneumothorax or free air per my interpretation Exam and history seem consistent with muscle skeletal chest pain. Patient was informed to follow-up family care for his blood pressure and glucose. Patient had a normal EKG. 2 negative troponins. He was well-appearing. Symptoms are easily reproducible on exam. Patient was advised to incentive spirometry and taken anti-inflammatories as needed for pain. He is advised follow-up family care in a few days or here in the ER sooner for chest pain, difficulty breathing , worsening signs or symptoms or as needed. By the evaluation outlined above emergent etiologies such as cardiac ischemia, aortic dissection, pulmonary embolism, pneumonia, pneumothorax, infections, pericarditis, myocarditis, gastrointestinal, as well as others were deemed relatively unlikely. The pt informed about the findings as listed above. All questions were answered and pleased with the treatment. Return instructions were outlined and the patient was discharged in stable condition. Referral: The patient was referred back to primary care physician for follow-up in 2 to 3 days for a recheck of the current condition. case reviewed with my Attending Medical Decision As above [place] Drug Monitoring Program Search Results: patient reviewed within database, see additional documentation (multiple narcotic prescriptions) Medication Reconcilliation Current Medication List: was personally reviewed by me Blood Pressure Screening Patient's blood pressure: Elevated blood pressure Blood pressure disposition: Elevated BP felt to be situational Impression Primary Impression: Chest wall muscle strain Additional Impression: Hyperglycemia Departure Information Dispostion Home / Self-Care Condition GOOD Referrals Eddie Pack M.D. (PCP) Patient Instructions My [facility] [employer] Additional Instructions Incentive spirometry 10 times an hour while you're awake for the next 2 weeks. Your blood pressure and glucose were elevated today. Follow-up with family care for this. Ibuprofen(Motrin, Advil) may be used for fever or pain. Use 600mg every six hours as needed. Take with food. Avoid using more than 2400mg in a 24 hour period. Do not use 2400mg per day for more than three consecutive days without physician direction. Prolonged inappropriate use can lead to stomach upset or ulcers. (AND/OR) Acetaminophen(Tylenol) may be used for fever or pain. Use 1000mg every six hours as needed. Avoid using more than 3000mg in a 24 hour period. Rest and drink plenty of fluids as tolerated. Continue current medications. Avoid strenuous activities and anything that worsens your pain. Resume normal activities once your symptoms resolve. Return to the ER immediately for worsening or persistent chest pain, abdominal pain, vomiting, fevers, chest pains, difficulty breathing, worsening of your condition, or as needed. Follow up with your primary physician in 2-3 days for a recheck of your current condition. Problem Qualifiers Primary Impression: Chest wall muscle strain Encounter type: initial encounter Qualified Codes: S29.011A - Strain of muscle and tendon of front wall of thorax, initial encounter
[2017-10-06] MEDS ORDERED: OXYCODONE IR HOME PACK PO ONE (02:15)
--- NOTE | 2017-10-06 06:32 | DIAGNOSTIC IMAGING REPORT ---
CHEST ONE VIEW PORTABLE HISTORY: 37 years-old Male CHEST PAIN acute atypical chest pain COMPARISON: Chest radiographs 09/06/2016 TECHNIQUE: Portable AP view of the chest FINDINGS: Cardiomediastinal and hilar silhouettes are within normal limits. No pneumothorax, pleural effusion, focal airspace consolidation or overt pulmonary edema. Bones of the chest are grossly intact. Mild degenerative changes of AC joints. IMPRESSION: No acute process. The above report was generated using voice recognition software. It may contain grammatical, syntax or spelling errors. Electronically signed by: Luis Simon M.D. 10/06/2017 6:31 AM Dictated Date/Time: 10/06/2017 6:30 AM
== END 2017-10-06 02:21 | disposition home or self-care (01) ==
LOC: C.EDB 23:47
DX: S29.011A Strain of muscle and tendon of front wall of thorax, initial encounter (principal); X58.XXXA Exposure to other specified factors, initial encounter; R73.9 Hyperglycemia, unspecified; R10.12 Left upper quadrant pain; J45.909 Unspecified asthma, uncomplicated; I10 Essential (primary) hypertension

== ENCOUNTER 2018-01-15 17:35 | Emergency (ER) | payer OTHER ==
[~2018-01-15] VITALS: Ht 182.9 cm; Wt 128.0 kg
[2018-01-15 17:37] VITALS: Ht 182.9 cm; Wt 128.0 kg
[2018-01-15 17:55] VITALS: TEMP 36.9
[2018-01-15] MEDS ORDERED: SODIUM CHLORIDE 0.9% 1000ML 2,000 ML IV STA (17:55)
[2018-01-15] MEDS ORDERED: MAGNESIUM SULFATE 1GM / D5W 1 GM BAG IV STA (17:55)
[2018-01-15] MEDS ORDERED: METHYLPREDNISOLONE 125 MG VIAL IV STA (17:55)
--- NOTE | 2018-01-15 17:59 | EMERGENCY ROOM VISIT NOTE ---
History Report prepared by Ellen: Gerard Correia Under the Supervision of: Dr. Zion Singh M.D. First contact with patient: 17:50 Chief Complaint: RESPIRATORY PROBLEMS Stated Complaint: ASTHMA ATTACK History of Present Illness The patient is a 37 year old male who presents to the Emergency Room with complaints of worsening, moderate, shortness of breath beginning a couple days ago. The patient states he has a history of this, and it typically happens a couple times a year. He reports he also has a cough that is productive. The patient notes he develops a headache after coughing for a long time. He states he has a history of asthma, pneumonia, and bronchitis. The patient reports it feels similar to his previous pneumonia diagnoses, and he uses his inhalers as prescribed. He denies fevers, nausea, vomiting, diarrhea, abdominal pain, and throat pain. The patient notes a history of a blown cervical disk and recent surgery to the right side of his face. Source of History: patient Onset: couple days ago Symptom Intensity: moderate Quality: other (SOB) Timing: worsening Associated Symptoms: + headache, + cough, No fevers, No nausea, No vomiting , No abdominal pain, No diarrhea Note: Denies: throat pain Review of Systems See HPI for pertinent positives and negatives. A total of ten systems were reviewed and were otherwise negative. Past Medical & Surgical Medical Problems: (1) Asthma, Unspecified (2) Carotid gland cancer (3) Cholecystectomy (4) Cholelith W Cholecys Nec (5) DDD (degenerative disc disease), cervical (6) Esophageal Reflux (7) Hypertension Nos (8) Malignant neoplasm of parotid gland (9) Obesity, Nos (10) Parotid neoplasm (11) S/P radiation therapy (12) Sarcoidosis Surgical Problems: (1) H/O wisdom tooth extraction (2) History of parotid gland removal Family History Heart disease Social History Smoking Status: Never Smoker Drug Use: none Marital Status: Housing Status: lives with family Occupation Status: employed Current/Historical Medications Scheduled Calcium Carbonate (Tums), 2 TAB PO PRN Fluoxetine HCl (Fluoxetine HCl), 1 CAP PO DAILY Lisinopril (Lisinopril), 1 TAB PO DAILY Meloxicam (Meloxicam), 1 TAB PO DAILY Prednisone (Prednisone), 3 TAB PO DAILY Topiramate (Topiramate), 1 TAB PO HS Scheduled PRN Albuterol Hfa (Ventolin Hfa), 2-4 PUFFS INH Q6H PRN for SOB/Wheezing Carisoprodol (Soma), 350 MG PO HS PRN for Muscle Spasms Diphenhydramine Hcl (Benadryl Allergy), 2 CAP PO Q4 PRN for ALLERGIC REACTION Ipratropium-Albuterol (Duoneb), 1 TREATMENT INH Q4H PRN for PRN Oxycodone/Acetaminophen 5MG/325MG (Percocet 5MG/325MG), 1 TABLET PO Q8 PRN for Pain Allergies Coded Allergies: Cat Dander (Verified Allergy, Unknown, EYES SWELLING,STUFFINESS, 01/15/18) Dust (Verified Allergy, Unknown, STUFFINESS, ASTHMA TRIGGER?, 01/15/18) NO KNOWN DRUG ALLERGIES (Unverified Allergy, Unknown, NONE, 01/15/18) Physical Exam Vital Signs Date Time Temp Pulse Resp B/P (MAP) Pulse Ox O2 Delivery O2 Flow Rate FiO2 01/15/18 21:10 113 18 112/63 95 Room Air 01/15/18 20:01 96 16 95 Room Air 01/15/18 19:47 97 20 151/76 96 Room Air 01/15/18 19:32 93 01/15/18 18:39 95 22 144/81 100 Nebulizer 6.0 01/15/18 18:18 88 14 98 Nasal Cannula 3.0 01/15/18 18:12 99 Nasal Cannula 4.0 01/15/18 18:12 99 Nasal Cannula 4.0 01/15/18 18:12 99 Nasal Cannula 4.0 01/15/18 17:55 36.9 01/15/18 17:37 87 26 181/108 98 Room Air Physical Exam GENERAL: Awake, alert, fatigued, uncomfortable-appearing, in no distress HENT: Normocephalic, atraumatic. Oropharynx and mucous membranes are dry, otherwise unremarkable. EYES: Normal conjunctiva. Sclera non-icteric. NECK: Supple. No nuchal rigidity. FROM. No JVD. RESPIRATORY: Scattered wheezes. CARDIAC: Regular rate, normal rhythm. Extremities warm and well perfused. Pulses equal. ABDOMEN: Soft, non-distended. No tenderness to palpation. No rebound or guarding. No masses. RECTAL: Deferred. MUSCULOSKELETAL: Chest examination reveals no tenderness. The back is symmetrical on inspection without obvious abnormality. There is no CVA tenderness to palpation. No joint edema. LOWER EXTREMITIES: Calves are equal size bilaterally and non-tender. No edema. No discoloration. NEURO: Normal sensorium. No sensory or motor deficits noted. SKIN: No rash or jaundice noted. Medical Decision & Procedures ER Provider Diagnostic Interpretation: X-ray: Per my interpretation, radiologist review. SINGLE VIEW CHEST CLINICAL HISTORY: Atypical chest pain. FINDINGS: An AP, portable, upright chest radiograph is compared to study dated 10/06/2017. The examination is degraded by portable technique and patient rotation. The heart is top normal for projection. The mediastinal contour is within normal limits. There is no airspace consolidation or pleural effusion. No pneumothorax is seen. The bony thorax is grossly intact. Postoperative change is noted in the lower cervical spine. IMPRESSION: No acute cardiopulmonary abnormality. Electronically signed by: Ankit Olivo M.D. 01/15/2018 6:24 PM Dictated Date/Time: 01/15/2018 6:23 PM Laboratory Results 01/15/18 17:55 Red Blood Count 4.79, Mean Corpuscular Volume 82.5, Mean Corpuscular Hemoglobin 28.8, Mean Corpuscular Hemoglobin Concent 34.9, Mean Platelet Volume 9.3, Neutrophils (%) (Auto) 63.2, Lymphocytes (%) (Auto) 23.1, Monocytes (%) (Auto) 9.5, Eosinophils (%) (Auto) 4.0, Basophils (%) (Auto) 0.2, Neutrophils # (Auto) 2.88, Lymphocytes # (Auto) 1.05, Monocytes # (Auto) 0.43, Eosinophils # (Auto) 0.18, Basophils # (Auto) 0.01 01/15/18 17:55 Test 01/15/18 17:55 01/15/18 18:04 White Blood Count 4.55 K/uL (4.8-10.8) Red Blood Count 4.79 M/uL (4.7-6.1) Hemoglobin 13.8 g/dL (14.0-18.0) Hematocrit 39.5 % (42-52) Mean Corpuscular Volume 82.5 fL (80-100) Mean Corpuscular Hemoglobin 28.8 pg (25-34) Mean Corpuscular Hemoglobin Concent 34.9 g/dl (32-36) Platelet Count 128 K/uL (130-400) Mean Platelet Volume 9.3 fL (7.4-10.4) Neutrophils (%) (Auto) 63.2 % Lymphocytes (%) (Auto) 23.1 % Monocytes (%) (Auto) 9.5 % Eosinophils (%) (Auto) 4.0 % Basophils (%) (Auto) 0.2 % Neutrophils # (Auto) 2.88 K/uL (1.4-6.5) Lymphocytes # (Auto) 1.05 K/uL (1.2-3.4) Monocytes # (Auto) 0.43 K/uL (0.11-0.59) Eosinophils # (Auto) 0.18 K/uL (0-0.5) Basophils # (Auto) 0.01 K/uL (0-0.2) RDW Standard Deviation 40.7 fL (36.4-46.3) RDW Coefficient of Variation 13.4 % (11.5-14.5) Immature Granulocyte % (Auto) 0.0 % Immature Granulocyte # (Auto) 0.00 K/uL (0.00-0.02) Anion Gap 10.0 mmol/L (3-11) Est Creatinine Clear Calc Drug Dose 110.8 ml/min Estimated GFR () 84.1 Estimated GFR (Non- 72.6 BUN/Creatinine Ratio 16.5 (10-20) Calcium Level 8.4 mg/dl (8.5-10.1) Total Bilirubin 0.3 mg/dl (0.2-1) Direct Bilirubin < 0.1 mg/dl (0-0.2) Aspartate Amino Transf (AST/SGOT) 25 U/L (15-37) Alanine Aminotransferase (ALT/SGPT) 51 U/L (12-78) Alkaline Phosphatase 72 U/L (45-117) Total Protein 7.4 gm/dl (6.4-8.2) Albumin 3.8 gm/dl (3.4-5.0) Lipase 234 U/L (73-393) Bedside Lactic Acid Venous 1.36 mmol/L (0.90-1.70) Laboratory results reviewed by me Medications Administered Medications (Trade) Dose Ordered Sig/Janeen Route Start Time Stop Time Status Last Admin Dose Admin Sodium Chloride 2,000 ml @ 999 mls/hr Q2H1M STAT IV 01/15/18 17:55 01/15/18 19:55 DC 01/15/18 18:01 999 MLS/HR Albuterol/ Ipratropium (Duoneb) 12 ml ONE ONCE INH 01/15/18 18:00 01/15/18 18:01 DC 01/15/18 18:17 12 ML Methylprednisolone Sodium Succinate (Solu-Medrol IV) 125 mg NOW STAT IV 01/15/18 17:55 01/15/18 17:58 DC 01/15/18 18:00 125 MG Magnesium Sulfate (Magnesium Sulfate) 2 gm NOW STAT IV 01/15/18 17:55 01/15/18 17:58 DC 01/15/18 18:00 2 GM Sodium Chloride 1,000 ml @ 999 mls/hr Q1H1M STAT IV 01/15/18 19:42 01/15/18 20:42 DC 01/15/18 19:51 999 MLS/HR Albuterol/ Ipratropium (Duoneb) 12 ml ONE ONCE INH 01/15/18 19:45 01/15/18 19:46 DC 01/15/18 20:01 12 ML Ketorolac Tromethamine (Toradol Inj) 15 mg NOW STAT IV 01/15/18 19:44 01/15/18 19:46 DC 01/15/18 19:51 15 MG ECG Per My Interpretation Indication: SOB/dyspnea Rate (beats per minute): 69 Rhythm: normal sinus Findings: no acute ischemic change, other (Normal axis) ED Course 1750: The patient was evaluated in room B03B. A complete history and physical exam was performed. 1933: I reevaluated the patient. He is feeling better. I discussed exam findings up until this point. 2117: I reevaluated the patient. Discussed results and discharge instructions: he verbalized understanding and agreement. The patient is ready for discharge after he finishes his nebulizer. Medical Decision I reviewed the patient's past medical history, medications, and the nursing notes as described above. Differential diagnosis: Etiologies such as infections, reactive airway disease, pneumonia, pneumothorax , COPD, CHF, cardiac ischemia, pulmonary embolism, musculoskeletal, gastrointestinal, asthma exacerbation, as well as others were entertained. The patient is a 37-year-old gentleman with a past history of asthma who presents to emergency department with worsening cough congestion wheezing per hpi. On arrival the patient is uncomfortable and fatigued appearing but no acute distress, afebrile, toxic to 88% on room air and otherwise stable vital signs. On exam the patient has diffuse wheezes throughout. EKG unremarkable. Patient was given IV steroids, continuous DuoNeb and magnesium with good effect and subsequent satting 93% on room air. Chest x-ray negative. WBC 4.5 and lactate within normal limits. Labs otherwise unremarkable. Patient feeling improved after initial treatment. Given the patient's extensive wheezing on arrival patient was given repeat continuous DuoNeb for added bronchodilation. Plan for close PCP follow-up. Findings and plan for follow-up reviewed with patient. Patient agreeable and d/c'd per discharge instructions. Medication Reconcilliation Current Medication List: was personally reviewed by me Blood Pressure Screening Patient's blood pressure: Elevated blood pressure Blood pressure disposition: Elevated BP felt to be situational Impression Primary Impression: Asthma with exacerbation Scribe Attestation The scribe's documentation has been prepared under my direction and personally reviewed by me in its entirety. I confirm that the note above accurately reflects all work, treatment, procedures, and medical decision making performed by me. Departure Information Dispostion Home / Self-Care Prescriptions Prednisone (Prednisone) 20 Mg Tab 3 TAB PO DAILY for 4 Days, #12 TAB FOR 4 DAYS Prov: Zion Singh M.D. 01/15/18 Referrals Eddie Pack M.D. (PCP) Forms HOME CARE DOCUMENTATION FORM, IMPORTANT VISIT INFORMATION, WORK / SCHOOL INSTRUCTIONS Patient Instructions ED Bronchitis Asthmatic, My [facility] Additional Instructions Please follow up with your primary care physician in the next 1-3 days for re- evaluation. You likely have an asthma exacerbation likely due to a viral upper respiratory infection or provocation from recent trigger exposure. Otherwise, your exam, EKG, chest xray, and lab results did not show signs of an emergent condition at this time. Prednisone as directed. Use your albuterol inhaler 2 puffs every 4 hours for the next 48 hours and then as needed thereafter. Acetaminophen and ibuprofen for pain and fevers as needed. Drink plenty of fluids to assure hydration. Return to the emergency department for worsening symptoms as described in the accompanying instructions.
[2018-01-15] MEDS ORDERED: ALBUT/IPRATROP 3MG/0.5MG NEB 3 ML VIAL INH ONE ×2 (18:00→19:45)
[2018-01-15] MEDS ORDERED: VNTHFA/IN INH (18:05)
[2018-01-15] MEDS ORDERED: MELO-83 PO (18:05)
[2018-01-15] MEDS ORDERED: TPM100 PO (18:05)
[2018-01-15] MEDS ORDERED: CARI350T28 PO (18:05)
[2018-01-15] MEDS ORDERED: FLUO20CA36 PO (18:05)
[2018-01-15] MEDS ORDERED: OXYC-57 PO (18:05)
[2018-01-15] MEDS ORDERED: LSN5 PO (18:05)
[2018-01-15 18:11] LABS: BASO % 0.2 %; BASO ABS # 0.01 K/uL (0-0.2); EOS ABS # 0.18 K/uL (0-0.5); HEMATOCRIT 39.5 % (42-52); HEMOGLOBIN 13.8 g/dL (14.0-18.0); LYMPH % 23.1 %; LYMPH ABS # 1.05 K/uL (1.2-3.4); MEAN CELL VOLUME 82.5 fL (80-100); MEAN CORPUSCULAR HEMOGLOBIN 28.8 pg (25-34); MEAN CORPUSCULAR HGB CONC 34.9 g/dl (32-36); MEAN PLATELET VOLUME 9.3 fL (7.4-10.4); MONO % 9.5 %; MONO ABS # 0.43 K/uL (0.11-0.59); NEUT % 63.2 %; NEUT ABS # 2.88 K/uL (1.4-6.5); PLATELET COUNT 128 K/uL (130-400); RED CELL DISTRIBUTION WIDTH CV 13.4 % (11.5-14.5); RED CELL DISTRIBUTION WIDTH SD 40.7 fL (36.4-46.3); WHITE BLOOD COUNT 4.55 K/uL (4.8-10.8)
[2018-01-15 18:12] VITALS: O2SAT 99
[2018-01-15 18:18] VITALS: PULSE 88; O2SAT 98
--- NOTE | 2018-01-15 18:25 | DIAGNOSTIC IMAGING REPORT ---
SINGLE VIEW CHEST CLINICAL HISTORY: Atypical chest pain. FINDINGS: An AP, portable, upright chest radiograph is compared to study dated 10/06/2017. The examination is degraded by portable technique and patient rotation. The heart is top normal for projection. The mediastinal contour is within normal limits. There is no airspace consolidation or pleural effusion. No pneumothorax is seen. The bony thorax is grossly intact. Postoperative change is noted in the lower cervical spine. IMPRESSION: No acute cardiopulmonary abnormality. Electronically signed by: Ankit Olivo M.D. 01/15/2018 6:24 PM Dictated Date/Time: 01/15/2018 6:23 PM
[2018-01-15 18:30] LABS: ALBUMIN 3.8 gm/dl (3.4-5.0); ALT/SGPT 51 U/L (12-78); AST/SGOT 25 U/L (15-37); BLOOD UREA NITROGEN 21 mg/dl (7-18); CALCIUM 8.4 mg/dl (8.5-10.1); CARBON DIOXIDE 21 mmol/L (21-32); CREATININE 1.25 mg/dl (0.60-1.40); GLUCOSE 89 mg/dl (70-99); LIPASE 234 U/L (73-393); POTASSIUM 3.7 mmol/L (3.5-5.1); SODIUM 141 mmol/L (136-145)
[2018-01-15 18:33] LABS: ALKALINE PHOSPHATASE 72 U/L (45-117); TOTAL PROTEIN 7.4 gm/dl (6.4-8.2)
[2018-01-15] MEDS ORDERED: SODIUM CHLORIDE 0.9% 1000ML 1,000 ML IV STA (19:42)
[2018-01-15] MEDS ORDERED: KETOROLAC TROMETHAMINE 30 MG/ML VIAL IV STA (19:44)
[2018-01-15 20:01] VITALS: PULSE 96; O2SAT 95
[2018-01-15] MEDS ORDERED: PRED20TA PO (20:24)
[2018-01-15 21:10] VITALS: BP 112/63; PULSE 113; O2SAT 95
== END 2018-01-15 21:17 | disposition home or self-care (01) ==
LOC: C.EDB 17:36
DX: J45.901 Unspecified asthma with (acute) exacerbation (principal); R53.83 Other fatigue; I10 Essential (primary) hypertension; D86.9 Sarcoidosis, unspecified; E66.9 Obesity, unspecified; M50.30 Other cervical disc degeneration, unspecified cervical region; K21.9 Gastro-esophageal reflux disease without esophagitis; Z85.89 Personal history of malignant neoplasm of other organs and systems; Z91.048 Other nonmedicinal substance allergy status